=== PATIENT | female | born 1960 | race Caucasian/White ===

== ENCOUNTER 2018-02-28 05:57 | Day surgery (SDC) | payer MEDICAID ==
[~2018-02-28] VITALS: Ht 162.6 cm; Wt 67.7 kg
--- NOTE | ~2018-02-28 | OP ---
PATIENT NAME: PINKY HERRERA MEDICAL RECORD: [id number] LOCATION:[facility] ADMISSION DATE: SURGEON: VICTORIANO MORGAN DO DATE OF OPERATION: 02/28/2018 PROCEDURE: EGD with biopsies. INDICATIONS FOR PROCEDURE: Dysphagia, generalized abdominal pain, heartburn, nausea and vomiting, diarrhea. SCOPE: Olympus video gastroscope. MEDICATIONS: Propofol 150 mg IV per anesthesia. ESTIMATED BLOOD LOSS: Minimal. COMPLICATIONS: None. FINDINGS: Informed consent was given. The patient was made comfortable with the above medication. After reaching an adequate level of sedation by slow IV push, the patient was placed on her left side. The endoscope was advanced under direct visualization through the mouth to the second or third portion of the duodenum. The upper, middle, and lower thirds of the esophagus appeared normal. Random biopsies were taken in the mid esophagus to rule out eosinophilic esophagitis regarding her dysphagia. There were no strictures or other abnormalities visualized within the esophagus itself. At the GE junction, there was mild evidence of LA class A reflux induced esophagitis with very few small breaks in the Z line. The endoscope was advanced beyond the GE junction into the stomach and retroflexed to view the cardia and fundus, which appeared normal. On entrance into the stomach, there was some bilious fluid present, but this was a small amount. Throughout the entire stomach, there was some atrophic mucosa and some congestion by appearance. Random biopsies were taken to submit for histology and to rule out H. pylori. The endoscope was advanced beyond the pylorus into the duodenum, which also had a somewhat atrophic appearance. Random biopsies were taken from the bulb and second portion of the duodenum to submit for histology. The endoscope was withdrawn from the patient. The patient tolerated the procedure well and there were no complications. IMPRESSION: 1. LA class A reflux-induced esophagitis. 2. Gastritis. 3. Duodenitis. PLAN AND RECOMMENDATIONS: 1. Discharge home when recovery parameters are met. 2. Follow up biopsy specimen results. 3. GERD precautions. 4. We will schedule antacid medications providing a prescription for omeprazole 40 mg every morning before eating or drinking anything times 60 days and Tagamet [id number] at night. 5. Trial of cholestyramine 4 grams p.o. b.i.d. for suspected bile salt induced diarrhea. 6. Consider gastric emptying scan if symptoms are not improving from nausea and vomiting standpoint with additional medications. 7. Consider esophageal manometry study if dysphagia does not change with the OPERATIVE REPORT [id number] PINKY HERRERA scheduled antacid medications. TRANSINT:[id number] Voice Confirmation ID: [id number] DOCUMENT ID: [id number] VICTORIANO MORGAN DO at 1524 CC: [id number] DICTATION DATE: 02/28/18 0804 ANIMAL ASSISTED THERAPIST: 02/28/18 1224 [facility] 02/28/18 [id number] [place] [address]
[2018-02-28] MEDS ORDERED: ACID RELIEF (06:20)
[2018-02-28] MEDS ORDERED: DILAUDID4 MG PO (06:21)
[2018-02-28] MEDS ORDERED: ZOVIRAX400 MG PO (06:21)
[2018-02-28] MEDS ORDERED: NEURONTIN600 MG PO (06:22)
[2018-02-28] MEDS ORDERED: ZOFRAN4 MG PO (06:23)
[2018-02-28] MEDS ORDERED: LOMOTIL TABLET1 TAB PO (06:23)
[2018-02-28] MEDS ORDERED: OMEPRAZOLE20 M1 PO (06:24)
[2018-02-28] MEDS ORDERED: PHENERGAN25 M1 (06:25)
[2018-02-28] MEDS ORDERED: CIMETIDINE200 MG PO (06:25)
[2018-02-28 06:39] VITALS: BP 103/75; Ht 162.6 cm; Wt 67.7 kg
[2018-02-28 07:01] LABS: BASOPHILS 0.4 % (0-2); HEMATOCRIT 36.3 % (36.0-48.0); IMMATURE GRANULOCYTES 0.2 % (0-5); LYMPHOCYTES 22.2 % (15-50); MCH 30.1 pg (26.0-34.0); MCHC 33.1 g/dL (31.0-37.0); MEAN PLATELET VOLUME 9.5 fL (7.4-10.4); MONOCYTES 9.6 % (2-11); NEUTROPHILS 64.6 % (40-80); PLATELET COUNT 208 10x3/uL (130-400); RBC 3.99 10x6/uL (4.00-5.40); RDW 13.8 % (11.5-14.5)
[2018-02-28 07:13] LABS: APTT 26.9 SECONDS (22.8-39.4); PROTIME 12.8 SECONDS (11.6-15.0)
== END 2018-02-28 09:15 | disposition home or self-care (01) ==
LOC: D.OPS 05:57
PROVIDERS: Anesthesiology
DX: R13.10 Dysphagia, unspecified (principal); K29.70 Gastritis, unspecified, without bleeding; K29.80 Duodenitis without bleeding; K21.0 Gastro-esophageal reflux disease with esophagitis; J45.909 Unspecified asthma, uncomplicated; K21.9 Gastro-esophageal reflux disease without esophagitis; J44.9 Chronic obstructive pulmonary disease, unspecified; Z01.812 Encounter for preprocedural laboratory examination